=== PATIENT | female | born 1985 ===

== ENCOUNTER 2020-04-12 06:30 | Day surgery (SDC) | payer OTHER ==
[2020-04-12] MEDS ORDERED: tylenol #3 PO (13:04)
[2020-04-12] MEDS ORDERED: MORGIDOX100 MG PO (13:04)
== END 2020-04-12 16:30 | disposition home or self-care (01) ==
LOC: CIR.AMB 06:30
PROVIDERS: ATTEND Obstetrics & Gynecology
DX: D25.0 Submucous leiomyoma of uterus (principal); N84.0 Polyp of corpus uteri; Z20.828 Contact with and (suspected) exposure to other viral communicable diseases